=== PATIENT | female | born 1965 | race African-American/Black ===

== ENCOUNTER 2016-10-03 17:50 | Emergency (ER) | payer OTHER ==
[~2016-10-03] VITALS: Ht 162.6 cm; Wt 65.8 kg
[2016-10-03 20:45] LABS: ABSOLUTE BASOPHIL COUNT 0 /CUMM (0.0-0.2); ABSOLUTE EOSINOPHIL COUNT 0 /CUMM (0.0-0.7); ABSOLUTE GRANULOCYTE CT 12.4 /CUMM (1.4-6.5); ABSOLUTE LYMPH COUNT 1.2 /CUMM (1.2-3.4); ABSOLUTE MONOCYTE COUNT 0.2 /CUMM (0.10-0.60); BASOPHIL % 0.3 % (0.0-2.0); EOSINOPHIL % 0.2 % (0-5); HEMATOCRIT 41.7 % (37-47); MEAN CORPUSCULAR HGB 29.8 PG (27.0-31.0); MEAN CORPUSCULAR HGB CONC 32.6 G/DL (33.0-37.0); MEAN CORPUSCULAR VOLUME 91.2 FL (81.0-99.0); MEAN PLATELET VOLUME 8.5 FL (7.4-10.4); PLATELET COUNT 292 /CUMM (130-400); RBC DISTRIBUTION WIDTH 13.3 % (11.5-14.5); RED BLOOD CELL CT 4.58 /CUMM (4.20-5.40); WHITE BLOOD CELL COUNT 13.9 /CUMM (4.8-10.8)
--- NOTE | 2016-10-03 20:51 | ED GI/GU/ABDOMINAL COMPLAINT ---
History of Present Illness General Chief Complaint: Nausea, Vomiting, Diarrhea Stated Complaint: NVD SINCE THIS AM Source: patient Exam Limitations: no limitations Allergies Uncoded Allergies: Allergy Other N Med Allergies N Triage Note: C/O VOMITING, DIARREHA AND UPPER ABDOMINAL PAIN X 16 HOURS. Triage Nurses Notes Reviewed? yes ? N Is pt currently ? No HPI: This patient is a 51-year-old female who presented to the emergency department today for evaluation of nausea, vomiting, and diarrhea since this morning. The patient reported that her symptoms woke her up from sleep early this morning. She reported that she has had so much diarrhea and vomiting that, "there is nothing left canal." She denied any blood in the stool or the vomitus. She reported upper abdominal pain that is nonradiating and gets up to an 8 out of 10. It is cramping and sharp. The pain has been constant. She reported that she vomits every time she tries to eat or drink anything. The patient reported chills, but denied any fevers. She denies any constipation, urinary burning, urgency, frequency, blood in the urine, or any other associated symptoms. (DAMON RIVAS PA-C) Vital Signs & Intake/Output Vital Signs & Intake/Output Vital Signs Date Time Temp Pulse Resp B/P Pulse O2 O2 Flow FiO2 Ox Delivery Rate 10/03 2233 98.8 76 19 148/69 97 Room Air 10/03 1758 98.9 88 18 160/70 99 Room Air ED Intake and Output 10/04 0000 10/03 1200 Intake Total 1000 Output Total Balance 1000 Intake, IV 1000 Patient 145 lb Weight Reconcile Medications Dicyclomine Hydrochloride (Bentyl) 10 MG CAPSULE 1 CAP PO TID PRN ABDOMINAL SPASMS Ondansetron (Zofran Odt) 4 MG TAB.RAPDIS 1 TAB SL TID PRN NAUSEA/VOMITING (CONRAD BOYKIN,MIHIR) Past History Travel History Traveled to [place] past 21 day No Medical History Any Pertinent Medical History? see below for history Neurological: NONE EENT: NONE Cardiovascular: NONE Respiratory: NONE, asthma Gastrointestinal: NONE Hepatic: NONE Renal: NONE Musculoskeletal: NONE Psychiatric: NONE Endocrine: NONE Surgical History Surgical History: cholecystectomy Psychosocial History What is your primary language Hungarian Tobacco Use: Never used ETOH Use: denies use Family History Hx Contributory? No (DAMON RIVAS PA-C) Review of Systems Review of Systems Constitutional: Reports: see HPI. EENTM: Reports: no symptoms. Respiratory: Reports: no symptoms. Cardiovascular: Reports: no symptoms. GI: Reports: see HPI. Genitourinary: Reports: no symptoms. Musculoskeletal: Reports: no symptoms. Skin: Reports: no symptoms. Neurological/Psychological: Reports: no symptoms. All Other Systems: Reviewed and Negative (DAMON RIVAS PA-C) Physical Exam Physical Exam Gastrointestinal: normal bowel sounds, soft, no organomegaly, NONDISTENDED. TENDERNESS TO PALPATION IN THE UPPER ABDOMEN WITH NO REBOUND OR GUARDING. nO mCbURNEY POINT TENDERNESS.NEGATIVE Gibbs SIGN Comments: Well-developed well-nourished person in no acute distress HEENT: Normal EENT exam, moist mucous membranes Pupils equally round and reactive to light. Neck: Supple, no lymphadenopathy Back: Normal gait. Normal inspection Cardiovascular: Regular rate and rhythm with no murmurs Respiratory: Chest nontender. No respiratory distress. Breath sounds clear to auscultation bilaterally with no wheezes, rales, rhonchi Extremity: Normal and equal pulses Neuro: Alert oriented x3, cranial nerves II through XII grossly intact. Skin: No appreciable rash on exposed skin, skin is warm and dry. Psych: Mood and affect is normal, memory and judgment is normal. Core Measures ACS in differential dx? No Severe Sepsis Present: No Septic Shock Present: No (DAMON RIVAS PA-C) Progress Differential Diagnosis: AMI, appendicitis, biliary colic, bowel obstruction, colon cancer, cholecystitis, diverticulitis, gastritis, hepatitis, ischemic bowel, inflamm bowel dis, ovarian cyst, ovarian torsion, pancreatitis, PID/ cervicitis, perforated viscous, UTI/pyelo, INFLUENZA, VIRAL SYNDROME, GASTROENTERITIS Initial ED EKG: none Comments: 10/03/2016 9:59:50 PM: I was at the patient's bedside for reevaluation. She is currently resting on the stretcher in no acute distress. She reported that she feels better with no more nausea or pain. 1 L of IV fluids has been confused. Likely viral syndrome. Discussed with this patient and the importance of returning to the emergency department should her symptoms persist or if she continues to be unable to tolerate anything by mouth. She is stable for discharge home at this time. (DAMON RIVAS PA-C) Plan of Care: Orders Procedure Date/time Status RAPID VIRAL INFLUENZA A 10/03 2044 Complete LIPASE 10/03 2018 Complete DIRECT BILIRUBIN 10/03 2018 Complete COMPREHENSIVE METABOLIC PANEL 10/03 2018 Complete CBC WITHOUT DIFFERENTIAL 10/03 2018 Complete AMYLASE 10/03 2018 Complete Laboratory Tests 10/03/162031: Anion Gap 13, Estimated GFR > 60, BUN/Creatinine Ratio 14.3, Glucose 116 H, Calcium 10.8 H, Total Bilirubin 0.9, Direct Bilirubin 0.4, AST 48 H, ALT 63 H , Alkaline Phosphatase 165 H, Total Protein 7.9, Albumin 4.7, Globulin 3.2, Albumin/Globulin Ratio 1.5, Amylase 72, Lipase 53, CBC w Diff NO MAN DIFF REQ, RBC 4.58, MCV 91.2, MCH 29.8, RDW 13.3, MPV 8.5, Gran % 89.4 H, Lymphocytes % 9.0 L, Monocytes % 1.1 L, Eosinophils % 0.2, Basophils % 0.3, Absolute Granulocytes 12.4 H, Absolute Lymphocytes 1.2, Absolute Monocytes 0.2, Absolute Eosinophils 0, Absolute Basophils 0, PUBS MCHC 32.6 L 10/03/162018: Urine Color Cancelled, Urine Clarity Cancelled, Urine pH Cancelled, Ur Specific Carmen Cancelled, Urine Protein Cancelled, Urine Ketones Cancelled, Urine Nitrite Cancelled, Urine Bilirubin Cancelled, Urine Urobilinogen Cancelled, Ur Leukocyte Esterase Cancelled, Ur Microscopic Cancelled, Urine Hemoglobin Cancelled, Urine Glucose Cancelled, Urine Test Cancelled Microbiology 10/04 2051 NASOPHARYN: Influenza Virus A & B Rapid Smear - COMP Departure Departure Disposition: HOME OR SELF CARE Condition: Stable Clinical Impression Primary Impression: Viral syndrome Referrals: PATIENT HAS NO PRIMARY CARE DR (PCP/Family) Additional Instructions: Take medication for nausea as prescribed. Take medication for abdominal spasms as prescribed. Please rest and be sure to stay hydrated. Follow-up with your primary care physician. Return for any worsening symptoms or concerns. Departure Forms: Customer Survey General Discharge Information Prescriptions: Current Visit Scripts Ondansetron (Zofran Odt) 1 TAB SL TID PRN NAUSEA/VOMITING #10 TAB Dicyclomine Hydrochloride (Bentyl) 1 CAP PO TID PRN ABDOMINAL SPASMS #12 CAP (DAMON RIVAS PA-C) PA/RENTAL CAR DELIVERER Co-Sign Statement Statement: ED Attending supervision documentation- [] I saw and evaluated the patient. I have also reviewed all the pertinent lab results and diagnostic results. I agree with the findings and the plan of care as documented in the PA's/RENTAL CAR DELIVERER's documentation. [X] I have reviewed the ED Record and agree with the PA's/RENTAL CAR DELIVERER's documentation. [] Additions or exceptions (if any) to the PAs/RENTAL CAR DELIVERER's note and plan are summarized below: [] (CONRAD BOYKIN,MIHIR)
[2016-10-03 21:03] LABS: GRANULOCYTE % 89.4 % (42.2-75.2)
[2016-10-03] MEDS ORDERED: ZOFRAN ODT4 M1 SL (22:01)
[2016-10-03] MEDS ORDERED: BENTYL10 M1 PO (22:01)
[2016-10-03 22:33] VITALS: BP 148/69
== END 2016-10-03 22:35 ==
LOC: ERH 17:50
PROVIDERS: Physician Assistant
DX: B34.9 Viral infection, unspecified (principal)
CPT/HCPCS: 81025; 87804; 87804-59; 96361; 96374; 96375; J1885; J2405